=== PATIENT | female | born 1965 | race Asian ===

== ENCOUNTER 2021-04-03 11:18 | Emergency (ER) | payer OTHER ==
[2021-04-03 11:47] VITALS: BP 135/84; PULSE 74; TEMP 98.1; BMI 22.8
[2021-04-03] MEDS ORDERED: IBUPROFEN 600 MG TABLET (FP) PO ONE (12:04)
== END 2021-04-03 13:10 | disposition home or self-care (01) ==
LOC: JERFT 11:18
PROC: 2W39X1Z Immobilization of Left Upper Extremity using Splint (ICD-10-PCS; principal; 2021-04-03)
DX: S52.125A Nondisplaced fracture of head of left radius, initial encounter for closed fracture (principal); W19.XXXA Unspecified fall, initial encounter; Y92.9 Unspecified place or not applicable
CPT/HCPCS: 73070-TC-LT-FY; 99284-25